=== PATIENT | male | born 1985 | race Caucasian/White ===

== ENCOUNTER 2024-09-29 17:05 | Emergency (ER) | payer BC, SELFPAY ==
[2024-09-29 17:26] VITALS: BP 133/67; PULSE 66; RESP 20; TEMP 36.8; O2SAT 99
[2024-09-29] MEDS: Lidocaine/Epinephri/Tetracaine Topical Gel 3 ML TP (18:15)
[2024-09-29] MEDS: Bacitracin 30 GM TUBE TP (19:01)
--- NOTE | 2024-09-29 19:01 | ED.GENADUL_ITS ---
Discharge Plan Disposition Patient Disposition: Home Condition: Stable Discharge Details Clinical Impression: Facial trauma, Laceration of face Primary Care Provider: [facility],Local ED Provider: Mouna Claros Home Meds and New Rx's Prescriptions: No Action No Known Home Meds Discharge Instructions Instructions: Laceration Repair With Stitches ED Additional Instructions: Laceration ration has been repaired with 5 stitches. These dissolve and will not need to be removed. You can clean the area with soap and water, pat dry. 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 Limitations to Documentation: no limitations . Information obtained by: patient . HPI Narrative: 39-year-old gentleman without significant past medical history presents for evaluation after falling from a ladder. He states that the ladder slipped, but did not fall all the way. He lost his balance and he hit his head on the counter, but he landed upright on his feet. He did not lose consciousness. He does not have a headache visual change, nausea or vomiting. He reports that he noted some bleeding over his right eye and that is the only reason why he came to the hospital today. Related Data Home Medications ?Medication ?Instructions ?Recorded ?Confirmed Unknown [No Known Home Meds] 09/29/24 09/29/24 Allergies Allergy/AdvReac Type Severity Reaction Status Date / Time No Known Allergies Allergy Verified 09/29/24 17:30 General Stated Complaint: Laceration MAGAN: 4 Exam Narrative Exam Narrative: Review of Systems: All systems reviewed & are unremarkable except as noted in HPI and below Well-developed, no acute distress 3 cm laceration over the right eyebrow, linear, no foreign body, no skull deformity orbital ridge intact Abrasion over nasal bridge without deformity, septum midline no nasal septal hematoma bilateral TMs unremarkable, no hemotympanum PERRL, normal conjunctiva No midline C-spine tenderness RRR Unlabored respiratory effort no focal neurologic deficits Appropriate mood and affect Course Vital Signs Vital signs: Vital Signs Temperature 36.8 C 09/29/24 17:26 Pulse 66 09/29/24 17:26 Respiratory Rate 20 09/29/24 17:26 Blood Pressure 133/67 09/29/24 17:26 Pulse Oximetry 99 09/29/24 17:26 Temperature 36.8 C 09/29/24 17:26 Pulse 66 09/29/24 17:26 Respiratory Rate 20 09/29/24 17:26 Blood Pressure 133/67 09/29/24 17:26 Pulse Oximetry 99 09/29/24 17:26 Oxygen Delivery Method Room Air 09/29/24 17:26 Oxygen Flow Rate 0 09/29/24 17:26 Pain Level 1 09/29/24 17:26 Procedure Laceration Laceration 1: Site: face Side (If applicable): right Description: linear (3 cm) Depth: simple, single layer Local anesthetic: LET(lidocaine epinephrine tetracaine) Skin layer closed with: chromic gut Suture size: 5-0 Number of sutures:: 5 Technique: simple, interrupted Medical Decision Making Emergent evaluation of closed head injury. Patient had no loss of consciousness and has no focal neurologic deficit. He has a small laceration to his face and an abrasion over his nose. Discussed indications for CT imaging, risk and benefits of not imaging and patient at this time with shared decision making and has elected not to have a CT scan. Think that this is a reasonable plan based on head CT criteria patient's examination. Laceration was repaired without complication. Wound care discussed with patient and return precautions advised. Discharge in good condition. Quality:SDOH Health Related Social Needs: No Data to Display PFSH All Active Problems (Updated 09/29/24 @ 18:49 by Mouna Claros MD) Laceration of face (Acute) Facial trauma (Acute) Social History Smoking risk assessment performed?: No
[2024-09-29 19:05] VITALS: BP 128/68; PULSE 64; RESP 16; O2SAT 99
== END 2024-09-29 19:07 | disposition home or self-care (01) ==
PROVIDERS: Emergency Provider Emergency Medicine
DX: S01.81XA Laceration without foreign body of other part of head, initial encounter (principal); W11.XXXA Fall on and from ladder, initial encounter
CPT/HCPCS: 12013